=== PATIENT | female | born 1995 | race Caucasian/White ===

== ENCOUNTER → 2016-09-11 | Outpatient (CLI) | payer BC ==
--- NOTE | 2016-09-11 15:00 | DIAGNOSTIC IMAGING REPORT ---
RENAL ULTRASOUND CLINICAL HISTORY: Chronic urinary tract infection. COMPARISON STUDY: None. TECHNIQUE: Sonography of the kidneys and the urinary bladder was performed. FINDINGS: The right kidney measures 10.3 x 3.5 x 4.8 cm and the left measures 10.4 x 4.6 x 4.3 cm. There is no hydronephrosis. Renal echogenicity, size and cortical thickness are normal. No calculus or mass is identified by sonography. The bladder is unremarkable. Both ureteral jets were identified. IMPRESSION: Normal renal ultrasound. No hydronephrosis. Electronically signed by: Malachi Emerson M.D. 09/11/2016 2:58 PM Dictated Date/Time: 09/11/2016 2:57 PM
[2016-09-11 16:45] LABS: URINE APPEARANCE CLEAR (CLEAR); URINE BILIRUBIN NEG (NEG); URINE COLOR YELLOW; URINE NITRITE NEG (NEG); URINE SPECIFIC GRAVITY 1.002 (1.000-1.030); UROBILINOGEN NEG (NEG)
[2016-09-11 16:58] LABS: MANUAL MICROSCOPIC REQUIRED? NO; REVIEW REQ? NO
== END | disposition home or self-care (01) ==
LOC: C.ULTR 14:21
PROVIDERS: ATTEND Pediatrics
DX: N39.0 Urinary tract infection, site not specified (principal)